=== PATIENT | female | born 1940 | race Caucasian/White ===

== ENCOUNTER → 2018-01-06 12:38 | Outpatient (CLI) | payer MEDICARE, OTHER ==
[2012-07-22 09:43] VITALS: BMI 23.3
== END | disposition home or self-care (01) ==
LOC: D.RT 12:38
DX: J44.9 Chronic obstructive pulmonary disease, unspecified (principal)

== ENCOUNTER → 2020-02-05 11:23 | Outpatient (CLI) | payer MEDICARE, OTHER ==
[2012-07-22 09:43] VITALS: BMI 23.3
== END | disposition home or self-care (01) ==
LOC: D.LAB 11:23
PROVIDERS: ATTEND Internal Medicine Pulmonary Disease
DX: Z11.59 Encounter for screening for other viral diseases (principal)

== ENCOUNTER → 2020-02-10 08:47 | Outpatient (CLI) | payer MEDICARE, OTHER ==
[2012-07-22 09:43] VITALS: BMI 23.3
== END | disposition home or self-care (01) ==
LOC: D.RT 02-03 11:30
PROVIDERS: ATTEND Internal Medicine Pulmonary Disease
DX: F17.200 Nicotine dependence, unspecified, uncomplicated (principal); J44.9 Chronic obstructive pulmonary disease, unspecified; Z11.59 Encounter for screening for other viral diseases

== ENCOUNTER → 2020-09-14 18:37 | Outpatient (CLI) | payer MEDICARE, OTHER ==
[2012-07-22 09:43] VITALS: BMI 23.3
[2020-09-14 18:46] LABS: BASOPHILS 0.5 % (0-2); EOSINOPHILS 1.5 % (0-7); HEMATOCRIT 43.1 % (36.0-48.0); HEMOGLOBIN 13.9 g/dL (12-16); LYMPHOCYTES 21.8 % (15-50); MCH 31.3 pg (26.0-34.0); MCHC 32.2 g/dL (31.0-37.0); MCV 97.2 fL (80.0-100.0); MEAN PLATELET VOLUME 9.5 fL (7.4-10.4); MONOCYTES 4.1 % (2-11); NEUTROPHILS 72.1 % (40-80); PLATELET COUNT 209 10x3/uL (130-400); RBC 4.44 10x6/uL (4.00-5.40); RDW 15.7 % (11.5-14.5); WBC 12.8 10x3/uL (4.8-10.8)
[2020-09-14 19:34] LABS: ALBUMIN 3.4 g/dL (3.4-5.0); ANION GAP 12.3 mmol/L (8-16); BILIRUBIN - TOTAL 0.65 mg/dL (0.2-1.3); CALCIUM 9.2 mg/dL (8.5-10.1); CARBON DIOXIDE 29.4 mmol/L (21.0-32.0); CREATININE - SERUM 1.1 mg/dL (0.6-1.3); POTASSIUM - SERUM 4.7 mmol/L (3.5-5.1); PROTEIN - SERUM 6.6 g/dL (6.4-8.2)
== END | disposition home or self-care (01) ==
LOC: D.LABREF 18:37
PROVIDERS: ATTEND Internal Medicine Pulmonary Disease
DX: R53.83 Other fatigue (principal)